=== PATIENT | female | born 1950 | race Caucasian/White ===

== ENCOUNTER → 2020-08-23 | Outpatient (CLI) | payer MEDICARE ==
[~2020-08-23] MED LIST: ALBU8.5H8 INH
== END | disposition home or self-care (01) ==
LOC: STAR 08:40
PROVIDERS: ATTEND Internal Medicine
DX: Z01.812 Encounter for preprocedural laboratory examination (principal); Z20.828 Contact with and (suspected) exposure to other viral communicable diseases; K86.2 Cyst of pancreas; I44.4 Left anterior fascicular block; R94.31 Abnormal electrocardiogram [ECG] [EKG]
CPT/HCPCS: 36415; 87635; 93005

== ENCOUNTER 2020-08-27 10:11 | Day surgery (SDC) | payer MEDICARE ==
[~2020-08-27] VITALS: Ht 170.2 cm; Wt 56.5 kg
[2020-08-27] MEDS ORDERED: CHLORHEXIDINE 15 ML UDC MM STA (10:28)
[2020-08-27] MEDS ORDERED: LACTATED RINGERS 1,000 ML IV SCH (10:30)
[2020-08-27] MEDS ORDERED: PROPOFOL 10 MG/ML, 20ML ONE (11:18)
== END 2020-08-27 12:45 | disposition home or self-care (01) ==
LOC: OUT 10:11
PROVIDERS: ATTEND Internal Medicine
DX: K86.2 Cyst of pancreas (principal); K25.9 Gastric ulcer, unspecified as acute or chronic, without hemorrhage or perforation; K29.70 Gastritis, unspecified, without bleeding; K31.9 Disease of stomach and duodenum, unspecified; N28.1 Cyst of kidney, acquired; J45.909 Unspecified asthma, uncomplicated; Z79.899 Other long term (current) drug therapy; Z88.0 Allergy status to penicillin
CPT/HCPCS: 43239; 43259; 88305; J2704; J7120